=== PATIENT | male | born 1960 | race Caucasian/White ===

== ENCOUNTER 2016-09-28 14:16 | Inpatient (IN) | payer SELFPAY ==
[~2016-09-28] VITALS: Ht 167.6 cm; Wt 71.7 kg
--- NOTE | ~2016-09-28 | ESTC ---
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 Procedure Admit Source:Emergency department. Procedure Type: Nuclear Stress Test:Pharmacological, Lexiscan, Cardiolite Stress Test Procedure Start time: 09/29/2016 09:00 Indications: Chest pain. Risk Factors The patient risk factors include:hypertension. Stress Protocols Resting ECG Sinus bradycardia. Pre-stress physical exam: Patient assessed by Dr Story prior to testing. Stress Protocol:Pharmacologic Predicted HR: 164 bpm ECG Findings No ECG changes suggestive of ischemia. Arrhythmias No rhythm abnormality. Symptoms No symptoms with Lexiscan infusion. Stress Interpretation Appropriate hemodynamic response to Lexiscan. No significant ST-T wave changes with Lexiscan. ECG portion is negative for ischemia by diagnostic criteria. Imaging Results Summed scores - Summed stress score: 9 - Summed rest score: 4 - Summed difference score: 5 Stress ejection Ejection fraction:48 % EDV :96 ml ESV :50 ml Stroke volume :46 ml LV mass :120 gr Imaging Protocols Rest Stress Isotope:Tc99m Sestamibi IV Isotope: Tc99m Sestamibi IV Isotope dose:11.2 mCi Isotope dose:32 mCi Date:09/29/2016 07:22 Date:09/29/2016 09:27 Technique: SPECT Technique: Gated Supine SPECT Supine IV remains in place after procedure. Scan Time:45-60 minutes post Scan Time:45-60 minutes post injection injection Procedure Medications - Regadenoson (Lexiscan) 0.4 mg IV over 10-15 sec. I.V. 0.4 mg. Medical History Admission Data Admission date: 09/28/2016 Admission Time: 17:41 Hospital Status: Inpatient. Signatures dtt: Sim Story dtd: 09/29/16 0900 Physician Self Edit
--- NOTE | ~2016-09-28 | HP ---
PATIENT'S NAME: DIANA REED [facility] AGE: 56 Y [address] ROOM: [place] [id number] LOCATION: GPCU ADMIT DATE: 09/28/2016 History & Physical DISCHARGE DATE: FAMILY PHYSICIAN: PHYSICIAN, UNKNOWN ATTENDING PHYSICIAN: Nicolas MALAVE DATE OF SERVICE: CHIEF COMPLAINT: Chest pain. HISTORY OF PRESENT ILLNESS: The patient is a 56-year-old gentleman with past medical history of drug abuse, hypothyroidism, and hypertension, who presents here with chest pain. The patient was brought in by railroad police. There was a meth lab bust today and the patient was found at the meth lab and was handcuffed and was on the process of taking him to the Police Department when the patient complained about chest pain and was brought here for further evaluation. In the emergency department, initial workup including negative troponin and normal EKG, but the patient continued to have chest pain. He reports the chest pain as left-sided, sharp, and worsened by breathing. The patient has been admitted to [facility] last month and had workup done with cardiac enzymes and EKG that were unremarkable. The patient currently is awake, not engaging, and somewhat somnolent, but however, the patient claims that he has left-sided sharp pain, he rates 10/10, and is worsened by deep breathing. MEDICAL HISTORY: Hypertension, hypothyroidism. SURGICAL HISTORY: Reports that he had some hernia surgery. FAMILY HISTORY: Reports his mom and dad has heart disease. SOCIAL HISTORY: He denies drug use, smoking, alcohol use and reports that he is homeless. MEDICATIONS: Currently being reconciled. REVIEW OF SYSTEMS: Unable to fully obtain review of systems as the patient is refusing to answer most of my questions and does not want to be bothered. PATIENT'S NAME: DIANA REED [facility] AGE: 56 Y [address] ROOM: [place] [address] LOCATION: GPCU ADMIT DATE: 09/28/2016 History & Physical DISCHARGE DATE: FAMILY PHYSICIAN: PHYSICIAN, UNKNOWN ATTENDING PHYSICIAN: Nicolas MALAVE PHYSICAL EXAMINATION: VITAL SIGNS: Temperature 97, blood pressure 139/81, heart rate 80, respiratory rate 15, and O2 saturation of 92 on room air. HEAD: Normocephalic. EYES: Extraocular muscles intact. Sclerae nonicteric. The patient is wearing glasses. NOSE: No nasal discharge. HEART: Regular rate and rhythm. No murmurs, rubs, or gallops. CHEST: Clear to auscultation bilaterally. No rhonchi, rales, or wheezing. ABDOMEN: Soft, nontender, and nondistended. Bowel sounds present. SKIN: Warm to touch. The patient has some scabs around his forearms. TUBING SUPERVISOR: The patient is alert, refused to answer most questions on attempt to ask him if the patient was alert and oriented to time, place, and situation. Motor and sensory grossly intact. LABORATORY DATA: CPK of 3152, troponin negative x1. Potassium of 3.1, sodium of 140, creatinine of 2.2, and BUN of 17. White blood cell 5.8, hemoglobin 13.5, and platelets 256. Urinalysis, currently pending. Urine drug screen pending. EKG: Normal sinus rhythm. No ischemic ST and T-wave changes. CT head done shows unremarkable CT exam of the brain. Chest x-ray shows negative chest. No cardiopulmonary process. ASSESSMENT AND PLAN: 1. Acute kidney injury, etiology most likely secondary to rhabdomyolysis. The patient has elevated CPK of 3152. We will start the patient on IV fluid. We will trend CPK. We will also acquire UA. To trend renal function daily. We will acquire renal ultrasound. 2. Rhabdomyolysis, etiology is secondary to drug use and trauma. Apparently, the patient was brought down by railroad police during his apprehension. Continue IV fluids as noted above. 3. Chest pain, most likely noncardiac in etiology. However, since the patient reports that he has a family history of heart disease, we will trend troponin. Acquire a stress test in the morning. 4. Hypothyroidism. Continue Synthroid. 5. Acute encephalopathy, etiology most likely to drug abuse, most likely secondary to medications. We will hold any sedation medication. We will use Tylenol for pain medication. We will follow the patient clinically. 6. Drug abuse, ongoing. Tried to discuss about cessation, but the patient claims that he does not use drugs. 7. Hypertension. We will continue his home medication of metoprolol. Greater than 60 minutes was spent on the patient's care. 50% of time was PATIENT'S NAME: DIANA REED [facility] AGE: 56 Y [address] ROOM: [place] [address] [facility] ADMIT DATE: 09/28/2016 History & Physical DISCHARGE DATE: FAMILY PHYSICIAN: PHYSICIAN, UNKNOWN ATTENDING PHYSICIAN: Nicolas MALAVE spent on direct patient care. Discussed case with Dr. Acosta, Emergency Department. We will admit the patient for YARIEL with rhabdomyolysis and atypical chest pain. Code status on admission, full code. veterans service officer to be notified when the patient is released from our hospital. MD NICOLE BETH/[place] /[id number] D: [id number] T: [id number] HISTORY & PHYSICAL
--- NOTE | ~2016-09-28 | ER ---
PATIENT'S NAME: DIANA REED [facility] AGE: 56 Y [address] ROOM: [place] [address] LOCATION: GPCU ADMIT DATE: 09/28/2016 ER/Outpatient Report DISCHARGE DATE: FAMILY PHYSICIAN: PHYSICIAN, UNKNOWN ATTENDING PHYSICIAN: Nicolas GAY Time of Arrival: 1416 hours. Time of Evaluation: 1416 hours. IDENTIFICATION: A 56-year-old male. CHIEF COMPLAINT: Chest pain. HISTORY OF PRESENT ILLNESS: The patient is a 56-year-old male, who was at home that law enforcement raided for methamphetamines. The patient ran from the house, and after running was taken by the police and handcuffed, and then at that time, he complained of chest pain, shortness of breath, nausea, and vomiting. The patient states he had chest pain for weeks. He had a similar episode and was taken to [facility]. He was not sure when that was. I did obtain those records and indeed he was hospitalized on June 18 for acute mental status changes, probable seizure, methamphetamine abuse, uncontrolled hypertension. I have an ER note and an admission note. I do not have a discharge summary. The patient was given 4 baby aspirin, 2 sublingual nitroglycerin en route per EMS with no change in his pain. The patient continues to complain of chest pain. He denies any previous cardiac history. ALLERGIES: TO PREDNISONE. CURRENT MEDICATIONS: Initially, the patient was not able to tell me current medications. Then, he did give the nursing staff a partial list of medications to include: 1. Levothyroxine. 2. Metoprolol. 3. Hydrochlorothiazide, but states that he has not been taking his medication for at least a couple of months. 4. Omeprazole was also on that list he gave the nursing staff. MEDICAL PROBLEMS: Hypothyroidism, hypertension. PRIOR SURGERIES: PATIENT'S NAME: DIANA REED [facility] AGE: 56 Y [address] ROOM: [place] [address] LOCATION: GPCU ADMIT DATE: 09/28/2016 ER/Outpatient Report DISCHARGE DATE: FAMILY PHYSICIAN: PHYSICIAN, UNKNOWN ATTENDING PHYSICIAN: Nicolas GAY Lung surgery x2. FAMILY HISTORY: Unable to obtain from the patient. REVIEW OF SYSTEMS: Really unable to obtain from the patient due to poor cooperation at that point. The patient at times would answer questions, and then at times appeared to be disoriented. SOCIAL HISTORY: The patient lives here in [place]. He said at times, he has been living out of his car. Law Enforcement states that he has been living at his house for quite some time. 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 Tobacco use, denies. Alcohol use, the patient denies. Drug use. He said "you might find meth in my system." The patient told me that his last use was probably today. He told the nurse that might have been last night. He denies any ingestion of any other substances at this time. LABORATORY DATA AND X-RAYS: Sodium 140; potassium 3.1; chloride 101; CO2 of 33; BUN 17; creatinine elevated at 2.2, previous creatinine in 2013 was 1.3, creatinine level from [facility] was 1.58 on June 17; blood sugar 91. AST 140, ALT 80; AST was 22, ALT 19 on June 17 at [facility]. Magnesium 2.1. Alcohol less than 0.010. CPK elevated at 3152. TSH 201. CK-MB 36.8, troponin I less than 0.040. Hemoglobin 13.5, hematocrit 41.2, platelets 256, white count 5.8 with a normal differential. Free T4 is 0.2. One-view chest x-ray, no acute process, pending Radiology over-read. Head CT, negative. PHYSICAL EXAMINATION: VITAL SIGNS: Weight 70.8 kg, blood pressure 139/81, pulse 80, respiratory rate 15, temp 97.7, sats 92% on room air. He did drop down to 88% on room air, so was placed on O2 at 2 L per nasal cannula. GENERAL: A 56-year-old male, who appears older than his stated age, in no acute distress. HEENT: Head: Normocephalic, atraumatic. Ears: TMs translucent both ears. Eyes: Pupils equal and reactive to light and accommodation. Extraocular movements intact. Nose: Mucosa pink. No lesions or drainage. Mouth: No lesions. Pharynx benign. Mucous membranes slightly dry. NECK: Supple. No lymphadenopathy. LUNGS: Clear to auscultation. HEART: Regular rate and rhythm. No murmur, rub, or gallop. ABDOMEN: Bowel sounds present. Soft, nondistended, nontender. SKIN: [place], warm, and dry. MUSCULOSKELETAL: The patient does have some superficial cuts to both of his PATIENT'S NAME: DIANA REED [facility] AGE: 56 Y [address] ROOM: [place] [address] [facility] ADMIT DATE: 09/28/2016 ER/Outpatient Report DISCHARGE DATE: FAMILY PHYSICIAN: PHYSICIAN, UNKNOWN ATTENDING PHYSICIAN: Nicolas GAY. He is handcuffed at the time of the evaluation. He has no tenderness to pelvic rock. No lower extremity edema. No neck pain. EMERGENCY DEPARTMENT COURSE: An IV was initiated. The patient was given Tylenol for pain. IV fluids 150 mL/h. Records were reviewed from [facility] to include an ER visit was on June 17, 2016, H and P was on June 17. Head CT at that time negative other than left maxillary sinusitis in June. CSF culture negative in June. Chest x-ray negative in June. EKG: Normal sinus rhythm, Q-wave noted in V2, poor anterior R-wave progression, no acute ST elevation or depression. EKG done here today at 1429 hours, normal sinus rhythm with PVCs at 82 beats per minute, no acute ST elevation or depression, poor anterior R-wave progression, and no significant change when compared to June 17, 2016. The patient was prescribed dose of Synthroid at that June visit was 100 mcg on discharge. The patient remained hemodynamically stable throughout his stay here in the emergency room but at times was confused. IMPRESSION AND PLAN: 1. Chest pain. No acute EKG changes. Cardiac enzymes are negative. 2. Elevated CPK and dehydration. IV fluids have been initiated here in the emergency room. 3. Altered mental status, negative head CT. 4. Substance abuse of methamphetamine abuse. 5. Acute kidney injury. 6. Elevated liver enzymes. 7. Mild hypokalemia. 8. Hypothyroidism, off his medications and significantly hypothyroid at this time. Dr. Gay evaluated the patient in the emergency room. ZENIA CLARK MD CAR/modl /[id number] d: 09/29/16 0105 t: 10/04/16 1013, OUTPATIENT REPORT
[2016-09-28 14:44] LABS: BASOPHIL % 0.7 %; EOSINOPHIL # 0.2 K/uL (0.0-0.5); EOSINOPHIL % 3.5 %; HEMATOCRIT 41.2 % (37.0-53.0); HEMOGLOBIN 13.5 g/dL (12.0-17.0); IMMATURE GRANULOCYTE % 0.2 %; LYMPHOCYTE # 1.5 K/uL (0.8-4.0); LYMPHOCYTE % 25.4 %; MCH 30.3 pg (27.0-34.0); MCHC 32.8 gm/dL (32.0-36.5); MCV 92.6 fl (83.0-98.0); MONOCYTE # 0.5 K/uL (0.0-1.0); MONOCYTE % 8.3 %; MPV 10.5 fl (9.4-12.4); NEUTROPHIL # (ANC) 3.6 K/uL (1.4-9.0); NEUTROPHIL % 61.9 %; NRBC % 0 /100WBC (0-0.00); PLATELET COUNT 256 K/uL (150-450); RBC 4.45 M/uL (4.00-6.00); RDW-CV 13.3 % (11.9-14.6); WBC 5.8 K/uL (4.0-11.0)
[2016-09-28 14:52] LABS: INR - (THERAPEUTIC) 1.01 (0.92-1.07); PROTIME 10.6 SECONDS (9.8-11.4); PTT 25 SECONDS (25-32)
[2016-09-28 15:05] LABS: ALBUMIN 3.9 gm/dL (3.5-5.0); ALK PHOS 64 IU/L (33-138); ALT 80 IU/L (12-78); ANION GAP 9.1 (10.0-19.0); AST 140 IU/L (10-40); BLOOD UREA NITROGEN 17 mg/dL (6-24); CALCIUM 9.5 mg/dL (8.5-10.5); CHLORIDE 101 mMol/L (96-110); CO2 33 mMol/L (22-32); CREATININE 2.2 mg/dL (0.6-1.3); ESTIMATED GFR (MDRD EQUATION) 31; MAGNESIUM 2.1 mg/dL (1.8-2.6); POTASSIUM 3.1 mMol/L (3.7-5.1); SODIUM 140 mMol/L (135-145); TOTAL BILIRUBIN 0.5 mg/dL (0.0-1.5); TOTAL PROTEIN 7.4 g/dL (6.0-8.4)
[2016-09-28 15:27] LABS: CPK 3152 IU/L (35-332)
[2016-09-28] MEDS ORDERED: HYDROCHLOROTH12.5 MG PO (18:45)
[2016-09-28] MEDS ORDERED: LEVOTHROID(SYN75 MCG PO (18:45)
[2016-09-28] MEDS ORDERED: LOPRESSOR25 MG PO (18:46)
[2016-09-28] MEDS ORDERED: PRILOSEC20 MG PO (18:46)
[2016-09-28 22:50] LABS: CPK 2406 IU/L (35-332)
[2016-09-29 05:39] LABS: BARBITURATE NEGATIVE (NEGATIVE); COCAINE NEGATIVE (NEGATIVE); OPIATES NEGATIVE (NEGATIVE)
[2016-09-29 05:40] LABS: AMPHETAMINE POSITIVE (NEGATIVE)
[2016-09-29 06:41] LABS: ALBUMIN 3.2 gm/dL (3.5-5.0); ANION GAP 11.8 (10.0-19.0); CALCIUM 8.5 mg/dL (8.5-10.5); CREATININE 1.7 mg/dL (0.6-1.3); POTASSIUM 3.8 mMol/L (3.7-5.1); TOTAL BILIRUBIN 0.4 mg/dL (0.0-1.5); TOTAL PROTEIN 6.2 g/dL (6.0-8.4)
[2016-09-29 07:10] LABS: CPK 1631 IU/L (35-332)
[2016-09-29 11:16] LABS: CPK 1562 IU/L (35-332)
[2016-09-30 05:27] LABS: ALBUMIN 3.2 gm/dL (3.5-5.0); ANION GAP 10.8 (10.0-19.0); CALCIUM 8.3 mg/dL (8.5-10.5); CREATININE 1.8 mg/dL (0.6-1.3); POTASSIUM 3.8 mMol/L (3.7-5.1); TOTAL BILIRUBIN 0.3 mg/dL (0.0-1.5); TOTAL PROTEIN 6.4 g/dL (6.0-8.4)
[2016-09-30 05:37] LABS: MAGNESIUM 1.9 mg/dL (1.8-2.6)
[2016-09-30] MEDS ORDERED: ASPIRIN (CHILDR81 MG PO (13:18)
[2016-09-30] MEDS ORDERED: BACITRACIN ZIN1 EAC1 TOP (13:20)
== END 2016-09-30 14:30 | disposition disaster alternative care site (69) | DRG 682 ==
LOC: GMED 14:16 → GPCU 17:41
PROVIDERS: Family Medicine; Hospitalist; ADMIT Internal Medicine
PROC: 3E0234Z Introduction of Serum, Toxoid and Vaccine into Muscle, Percutaneous Approach (ICD-10-PCS; principal; 2016-09-29)
DX: N17.9 Acute kidney failure, unspecified (principal); G93.40 Encephalopathy, unspecified; M62.82 Rhabdomyolysis; F15.10 Other stimulant abuse, uncomplicated; E03.9 Hypothyroidism, unspecified; E87.6 Hypokalemia; Z59.0 Homelessness; N18.4 Chronic kidney disease, stage 4 (severe); R00.1 Bradycardia, unspecified; I12.9 Hypertensive chronic kidney disease with stage 1 through stage 4 chronic kidney disease, or unspecified chronic kidney disease; Z23 Encounter for immunization
CPT/HCPCS: A9500; G0009; G0480; J2060; J2785; J7030

== ENCOUNTER → 2016-09-28 | Outpatient (CLI) | payer SELFPAY ==
[~2016-09-28] MED LIST: ASPIRIN (CHILDR81 MG PO; BACITRACIN ZIN1 EAC1 TOP; HYDROCHLOROTH12.5 MG PO; LEVOTHROID(SYN75 MCG PO; LOPRESSOR25 MG PO; PRILOSEC20 MG PO
== END | disposition disaster alternative care site (69) ==
LOC: GAMB 13:55
DX: R07.9 Chest pain, unspecified (principal); Z79.52 Long term (current) use of systemic steroids
CPT/HCPCS: A0425; A0427